=== PATIENT | male | born 1945 | race Caucasian/White ===

== ENCOUNTER 2018-05-13 14:26 | Inpatient (IN) | payer MEDICARE, OTHER ==
[~2018-05-13] VITALS: Ht 172.7 cm; Wt 84.1 kg
[~2018-05-13 14:26] MED LIST: METF500T7 PO; PER10325T PO; SIMV20TA5 PO; TADA5TAB2 PO; ZOLP5TAB8 PO
[2018-05-13] MEDS ORDERED: nitroGLYCERIN 1gm ointment UD TP ONE (14:45)
[2018-05-13 14:53] LABS: BASOPHILS % (AUTO) 0.3 % (0-1); EOSINOPHILS % (AUTO) 0.3 % (0-6); HEMATOCRIT 43.8 % (42.0-52.0); HEMOGLOBIN 14.6 g/dl (14.0-17.9); LYMPHOCYTES # (AUTO) 0.7 X10'3 (1.1-4.8); LYMPHOCYTES % (AUTO) 5.7 % (21-51); MEAN CORPUSCULAR HEMOGLOBIN 31.3 PG (27.0-31.0); MEAN CORPUSCULAR HGB CONC 33.2 % (33.0-36.5); MEAN CORPUSCULAR VOLUME 94.3 FL (78-98); MEAN PLATELET VOLUME 7.9 FL (7.4-10.4); MONOCYTES # (AUTO) 0.3 X10'3 (0-0.9); MONOCYTES % (AUTO) 2.2 % (2-12); NEUTROPHILS # (AUTO) 10.7 X10'3 (1.8-7.7); NEUTROPHILS % (AUTO) 91.5 % (42-75); PLATELET COUNT 202 X10'3 (140-440); RED BLOOD COUNT 4.64 X10'6 (4.70-6.10); RED CELL DISTRIBUTION WIDTH 14.3 % (11.5-14.5); WHITE BLOOD COUNT 11.7 X10'3 (4.5-11.0)
[2018-05-13] MEDS ORDERED: furosemide 40mg/4ml inj IV ONE (14:55)
[2018-05-13] MEDS ORDERED: furosemide 10 MG/1 ML 10ml inj IV ONE (14:55)
[2018-05-13] MEDS ORDERED: LORazepam 2 mg/ml vial IV ONE (15:00)
[2018-05-13 15:10] LABS: ALANINE AMINOTRANSFERASE 97 U/L (12-78); ALBUMIN 3.2 G/DL (3.4-5.0); ALBUMIN/GLOBULIN RATIO 0.9 (1.1-1.5); ALKALINE PHOSPHATASE 284 IU/L (46-116); ANION GAP 12 (8-16); ASPARTATE AMINO TRANSFERASE 98 U/L (10-37); BILIRUBIN,TOTAL 1.4 MG/DL (0.1-1.0); BLOOD UREA NITROGEN 22 MG/DL (7-18); BUN/CREATININE RATIO 18.6 (5.4-32.0); CALCIUM 8.5 MG/DL (8.5-10.1); CHLORIDE 100 MMOL/L (99-107); CREATININE 1.18 MG/DL (0.60-1.10); GLUCOSE 148 MG/DL (70-104); POTASSIUM 3.5 MMOL/L (3.5-5.1); SODIUM 140 MMOL/L (135-145); TOTAL CARBON DIOXIDE 28.5 MMOL/L (24-32); TOTAL PROTEIN 6.7 G/DL (6.4-8.2); eGFR 61 ML/MIN
[2018-05-13] MEDS ORDERED: heparin 10,000 units/1 ML INJ IV ONE ×2 (15:15→18:10)
[2018-05-13 15:16] LABS: MAGNESIUM 1.5 MG/DL (1.5-2.4)
[2018-05-13 15:20] LABS: ABG BASE EXCESS 1.4 mmol/L (-2.0-3.0); ABG HCO3 23.5 mmol/L (22.0-26.0); ABG OXYGEN SATURATION 97.6 % (95-98); ABG PCO2 (T) 30.7 mmHg (35.0-48.0); ABG PH (T) 7.502 (7.350-7.450); ABG PO2 (T) 102.7 mmHg (83-108); ALLEN'S TEST Positive; FCOHb 1.3 % (0.5-1.5); FMetHb 0.1 % (0.3-1.12); FO2Hb 96.2 % (94-100); RESPIRATORY RATE 8 b/min; TOTAL HEMOGLOBIN 15.5 G/dl (14.0-18.0)
[2018-05-13] MEDS: heparin 25,000 UNIT/250ml bag 250 ML IV SCH ×2 (15:36→15:47)
[2018-05-13] MEDS ORDERED: POTA10TA36 PO (16:53)
[2018-05-13] MEDS ORDERED: FURO-150 PO (16:53)
[2018-05-13] MEDS ORDERED: HYDR-4353 PO (16:53)
[2018-05-13] MEDS ORDERED: NYST1000 PO (16:53)
[2018-05-13] MEDS ORDERED: PRED5TAB PO (16:59)
[2018-05-13] MEDS ORDERED: heparin 25,000 UNIT/250ml bag 250 ML IV SCH (18:08)
[2018-05-13] MEDS ORDERED: magnesium 4gm in 100ml NS 100 ML IV PRN (18:10)
[2018-05-13] MEDS ORDERED: potassium Cl 40MEQ/NS 500ml 500 ML IV PRN ×2 (18:10)
[2018-05-13] MEDS ORDERED: magnesium hydroxide 30ml (MOM) UD suspension PO PRN (18:10)
[2018-05-13] MEDS ORDERED: potassium Cl 20 mEq SR tablet PO PRN (18:10)
[2018-05-13] MEDS ORDERED: acetaminophen 325mg tablet PO PRN ×2 (18:10)
[2018-05-13] MEDS ORDERED: glucagon, human recombinant 1mg kit SUBCUT PRN (18:10)
[2018-05-13] MEDS ORDERED: bisacodyl 10mg suppository rectal RC PRN (18:10)
[2018-05-13] MEDS ORDERED: mag hydrox/Alum hydrox/simeth 30ml oral suspension PO PRN (18:10)
[2018-05-13] MEDS ORDERED: insulin Lispro (HumaLOG) vial - multi-dose SQ SCH (18:10)
[2018-05-13] MEDS ORDERED: MESSAGE TO PHARMACY PO ONE (18:10)
[2018-05-13] MEDS ORDERED: HYDROcodone/acetaminophen 10/325mg tab PO PRN (18:10)
[2018-05-13] MEDS ORDERED: heparin 10,000 units/1 ML INJ IV PRN (18:10)
[2018-05-13] MEDS ORDERED: dextrose ORAL solution 15 GM/59 ML bottle PO PRN ×2 (18:10)
[2018-05-13] MEDS ORDERED: morphine 2 MG/ML inj. syringe IV PRN ×2 (18:10)
[2018-05-13] MEDS ORDERED: nitroGLYCERIN 0.4mg SUBLingual tab SL PRN (18:10)
[2018-05-13] MEDS ORDERED: dextrose 50%-water 50ml dispensing syringe IV PRN ×3 (18:10→20:30)
[2018-05-13] MEDS ORDERED: HYDROcodone/acetaminophen 5mg/325mg tablet PO PRN (18:10)
[2018-05-13] MEDS ORDERED: ondansetron/PF 4mg/2ml inj IV PRN (18:10)
[2018-05-13 18:58] LABS: HEMOGLOBIN A1C 6.5 % (4.5-6.2)
[2018-05-13 19:02] LABS: BASOPHILS % (AUTO) 0 % (0-1); EOSINOPHILS % (AUTO) 0.1 % (0-6); HEMOGLOBIN 14.7 g/dl (14.0-17.9); LYMPHOCYTES # (AUTO) 0.9 X10'3 (1.1-4.8); LYMPHOCYTES % (AUTO) 7.6 % (21-51); MEAN CORPUSCULAR HEMOGLOBIN 31.4 PG (27.0-31.0); MEAN CORPUSCULAR HGB CONC 33.3 % (33.0-36.5); MEAN CORPUSCULAR VOLUME 94.3 FL (78-98); MEAN PLATELET VOLUME 7.8 FL (7.4-10.4); MONOCYTES # (AUTO) 0.3 X10'3 (0-0.9); MONOCYTES % (AUTO) 2.6 % (2-12); NEUTROPHILS # (AUTO) 10.2 X10'3 (1.8-7.7); NEUTROPHILS % (AUTO) 89.7 % (42-75); PLATELET COUNT 197 X10'3 (140-440); RED BLOOD COUNT 4.67 X10'6 (4.70-6.10); RED CELL DISTRIBUTION WIDTH 14.5 % (11.5-14.5); WHITE BLOOD COUNT 11.4 X10'3 (4.5-11.0)
[2018-05-13 19:24] LABS: INR 1.7 INR; PARTIAL THROMBOPLASTIN TIME 62 SECONDS (22-32); PROTHROMBIN TIME 16.7 SECONDS (9.0-12.0)
[2018-05-13] MEDS ORDERED: folic acid inj. 2 MG, thiamine inj. 100 MG, MVI, adult No.4 with vit. K 10 ML in dextro... IV SCH ×4 (20:10)
[2018-05-13] MEDS ORDERED: thiamine inj. 100 MG in normal saline 100ml IV soln 100 ML IV ONE (20:10)
[2018-05-13 20:15] VITALS: BP 141/94
[2018-05-13] MEDS ORDERED: thiamine 100mg/ml 2ml inj. IV ONE (20:30)
[2018-05-13] MEDS ORDERED: haloperidol lactate 5mg/ml inj IM PRN (20:30)
[2018-05-13] MEDS ORDERED: haloperidol 5mg tablet PO PRN (20:30)
[2018-05-13] MEDS: insulin glargine (Lantus) pen - multi-dose SQ SCH (21:00)
[2018-05-13] MEDS: docusate sod 100mg capsule PO SCH (22:04)
[2018-05-13] MEDS: furosemide 40mg/4ml inj IV SCH (22:04)
[2018-05-13] MEDS: LORazepam 2 mg/ml vial IV PRN (22:05)
[2018-05-13 23:00] VITALS: BP 149/88
[2018-05-14] VITALS (7 sets, daily range): BP systolic 109–151; BP diastolic 59–103
[2018-05-14] MEDS: LORazepam 2 mg/ml vial IV PRN ×4 (00:40→22:16)
[2018-05-14 03:52] LABS: BASOPHILS % (AUTO) 0.1 % (0-1); EOSINOPHILS # (AUTO) 0.1 X10'3 (0-0.9); EOSINOPHILS % (AUTO) 1.1 % (0-6); HEMATOCRIT 41.8 % (42.0-52.0); HEMOGLOBIN 13.8 g/dl (14.0-17.9); LYMPHOCYTES # (AUTO) 0.7 X10'3 (1.1-4.8); LYMPHOCYTES % (AUTO) 8.1 % (21-51); MEAN CORPUSCULAR VOLUME 93.9 FL (78-98); MEAN PLATELET VOLUME 8.1 FL (7.4-10.4); MONOCYTES # (AUTO) 0.3 X10'3 (0-0.9); MONOCYTES % (AUTO) 3.8 % (2-12); NEUTROPHILS % (AUTO) 86.9 % (42-75); PLATELET COUNT 173 X10'3 (140-440); RED BLOOD COUNT 4.45 X10'6 (4.70-6.10); RED CELL DISTRIBUTION WIDTH 14.5 % (11.5-14.5); WHITE BLOOD COUNT 9.2 X10'3 (4.5-11.0)
[2018-05-14 03:58] LABS: ALANINE AMINOTRANSFERASE 79 U/L (12-78); ALBUMIN/GLOBULIN RATIO 0.9 (1.1-1.5); ALKALINE PHOSPHATASE 253 IU/L (46-116); ANION GAP 9 (8-16); ASPARTATE AMINO TRANSFERASE 64 U/L (10-37); BILIRUBIN,TOTAL 2.4 MG/DL (0.1-1.0); BLOOD UREA NITROGEN 23 MG/DL (7-18); BUN/CREATININE RATIO 17.7 (5.4-32.0); CALCIUM 8.3 MG/DL (8.5-10.1); CHLORIDE 98 MMOL/L (99-107); GLUCOSE 108 MG/DL (70-104); SODIUM 139 MMOL/L (135-145); TOTAL CARBON DIOXIDE 32.5 MMOL/L (24-32); TOTAL PROTEIN 6.3 G/DL (6.4-8.2); eGFR 54 ML/MIN
[2018-05-14 03:59] LABS: AMYLASE 89 U/L (25-115); CHOL/HDL RATIO 1.8 (0.00-4.99); CHOLESTEROL 128 MG/DL (0-200); HDL CHOLESTEROL 72 MG/DL (35-60); LDL CHOLESTEROL 51 MG/DL (50-100); MAGNESIUM 1.1 MG/DL (1.5-2.4); PHOSPHORUS 3.2 MG/DL (2.3-4.5); TRIGLYCERIDES 77 MG/DL (20-135)
[2018-05-14 04:04] LABS: INR 1.6 INR; PROTHROMBIN TIME 16.2 SECONDS (9.0-12.0)
[2018-05-14] MEDS: heparin 25,000 UNIT/250ml bag 250 ML IV SCH (04:29)
[2018-05-14] MEDS: magnesium Cl slow-release 64mg tablet PO PRN ×2 (07:22→19:46)
[2018-05-14] MEDS: docusate sod 100mg capsule PO SCH ×2 (07:23→19:45)
[2018-05-14] MEDS: nitroGLYCERIN 0.4mg/hour patch TD SCH (07:24)
[2018-05-14] MEDS: furosemide 40mg/4ml inj IV SCH ×2 (07:30→19:45)
[2018-05-14] MEDS ORDERED: folic acid inj. 2 MG, thiamine inj. 100 MG, MVI, adult No.4 with vit. K 10 ML in dextro... IV SCH ×4 (08:00)
[2018-05-14] MEDS: K and/or MAG REPLACEMENT MC SCH (08:00)
[2018-05-14] MEDS: carvedilol 6.25mg tablet PO SCH ×2 (11:07→19:45)
[2018-05-14] MEDS ORDERED: CEFU500T66 PO (18:38)
[2018-05-14] MEDS ORDERED: DONE10TA7 PO (18:38)
[2018-05-14] MEDS ORDERED: AMLO5TAB PO (18:38)
[2018-05-14] MEDS ORDERED: LOSA50TA3 PO (18:38)
[2018-05-14] MEDS ORDERED: DOXY100C2 PO (18:38)
[2018-05-14] MEDS ORDERED: FURO-149 PO (18:38)
[2018-05-14] MEDS ORDERED: MONT10TA21 PO (18:38)
[2018-05-14] MEDS ORDERED: ATOR40TA71 PO (18:38)
[2018-05-14] MEDS ORDERED: CARV-50 PO (18:38)
[2018-05-14] MEDS: insulin glargine (Lantus) pen - multi-dose SQ SCH (21:00)
[2018-05-14 22:37] LABS: MAGNESIUM 1.1 MG/DL (1.5-2.4); POTASSIUM 3.6 MMOL/L (3.5-5.1)
[2018-05-15] MEDS: magnesium Cl slow-release 64mg tablet PO PRN ×2 (00:30→18:01)
[2018-05-15] MEDS: LORazepam 2 mg/ml vial IV PRN (00:32)
[2018-05-15 03:00] VITALS: BP 142/80
[2018-05-15 06:00] VITALS: BP 139/92
[2018-05-15 06:50] LABS: BASOPHILS % (AUTO) 0.4 % (0-1); EOSINOPHILS # (AUTO) 0.1 X10'3 (0-0.9); EOSINOPHILS % (AUTO) 2.2 % (0-6); HEMATOCRIT 39.2 % (42.0-52.0); HEMOGLOBIN 13.2 g/dl (14.0-17.9); LYMPHOCYTES # (AUTO) 0.7 X10'3 (1.1-4.8); LYMPHOCYTES % (AUTO) 11.4 % (21-51); MEAN CORPUSCULAR HEMOGLOBIN 31.7 PG (27.0-31.0); MEAN CORPUSCULAR HGB CONC 33.7 % (33.0-36.5); MEAN CORPUSCULAR VOLUME 94.3 FL (78-98); MONOCYTES # (AUTO) 0.4 X10'3 (0-0.9); MONOCYTES % (AUTO) 5.8 % (2-12); NEUTROPHILS # (AUTO) 5.1 X10'3 (1.8-7.7); NEUTROPHILS % (AUTO) 80.2 % (42-75); PLATELET COUNT 154 X10'3 (140-440); RED BLOOD COUNT 4.15 X10'6 (4.70-6.10); RED CELL DISTRIBUTION WIDTH 14.3 % (11.5-14.5); WHITE BLOOD COUNT 6.4 X10'3 (4.5-11.0)
[2018-05-15 07:03] LABS: INR 1.6 INR; PROTHROMBIN TIME 15.9 SECONDS (9.0-12.0)
[2018-05-15 07:13] LABS: ALANINE AMINOTRANSFERASE 63 U/L (12-78); ALBUMIN 2.8 G/DL (3.4-5.0); ALBUMIN/GLOBULIN RATIO 0.9 (1.1-1.5); ALKALINE PHOSPHATASE 212 IU/L (46-116); AMYLASE 81 U/L (25-115); ANION GAP 7 (8-16); ASPARTATE AMINO TRANSFERASE 44 U/L (10-37); BILIRUBIN,TOTAL 1.8 MG/DL (0.1-1.0); BLOOD UREA NITROGEN 26 MG/DL (7-18); CALCIUM 8.2 MG/DL (8.5-10.1); CHLORIDE 99 MMOL/L (99-107); CREATININE 1.18 MG/DL (0.60-1.10); GLUCOSE 117 MG/DL (70-104); MAGNESIUM 1.1 MG/DL (1.5-2.4); PHOSPHORUS 3.2 MG/DL (2.3-4.5); POTASSIUM 3.3 MMOL/L (3.5-5.1); SODIUM 140 MMOL/L (135-145); TOTAL CARBON DIOXIDE 34.1 MMOL/L (24-32); TOTAL PROTEIN 5.8 G/DL (6.4-8.2); eGFR 61 ML/MIN
[2018-05-15] MEDS: furosemide 40mg/4ml inj IV SCH ×2 (07:43→22:01)
[2018-05-15] MEDS: spironolactone 25 MG tablet PO SCH (07:44)
[2018-05-15] MEDS: multivitamins, therapeutics tablet PO SCH (07:44)
[2018-05-15] MEDS: docusate sod 100mg capsule PO SCH ×2 (07:44→22:01)
[2018-05-15] MEDS: thiamine 100mg tablet PO SCH (07:44)
[2018-05-15] MEDS: nitroGLYCERIN 0.4mg/hour patch TD SCH (07:44)
[2018-05-15] MEDS: lisinopril 5mg tablet PO SCH (07:45)
[2018-05-15] MEDS: carVEDilol 12.5mg tablet PO SCH ×2 (07:45→22:01)
[2018-05-15] MEDS: folic acid 1mg tablet PO SCH (07:45)
[2018-05-15] MEDS: K and/or MAG REPLACEMENT MC SCH (07:54)
[2018-05-15 11:00] VITALS: BP 109/66
[2018-05-15 15:00] VITALS: BP 118/79
[2018-05-15] MEDS: potassium Cl 20 mEq SR tablet PO PRN (18:00)
[2018-05-15 19:00] VITALS: BP 117/77
[2018-05-15] MEDS: albuterol 2.5 MG/3 ML nebule NEB PRN (20:29)
[2018-05-15] MEDS ORDERED: LORazepam 1 MG tablet PO PRN (20:30)
[2018-05-15] MEDS ORDERED: LORazepam 2 mg/ml vial IV PRN (20:30)
[2018-05-15] MEDS: insulin glargine (Lantus) pen - multi-dose SQ SCH (21:00)
[2018-05-15 23:00] VITALS: BP 109/75
[2018-05-16] MEDS: albuterol 2.5 MG/3 ML nebule NEB PRN ×2 (02:37→14:42)
[2018-05-16 03:00] VITALS: BP 115/71
[2018-05-16] MEDS: potassium Cl 20 mEq SR tablet PO PRN (04:37)
[2018-05-16] MEDS: magnesium Cl slow-release 64mg tablet PO PRN (04:37)
[2018-05-16 06:00] VITALS: BP 127/70
[2018-05-16 06:33] LABS: BASOPHILS % (AUTO) 0.3 % (0-1); EOSINOPHILS # (AUTO) 0.2 X10'3 (0-0.9); EOSINOPHILS % (AUTO) 2.4 % (0-6); HEMATOCRIT 38.2 % (42.0-52.0); HEMOGLOBIN 12.6 g/dl (14.0-17.9); LYMPHOCYTES # (AUTO) 0.7 X10'3 (1.1-4.8); LYMPHOCYTES % (AUTO) 11.3 % (21-51); MEAN CORPUSCULAR HEMOGLOBIN 31.4 PG (27.0-31.0); MEAN CORPUSCULAR HGB CONC 33.1 % (33.0-36.5); MEAN CORPUSCULAR VOLUME 94.7 FL (78-98); MEAN PLATELET VOLUME 8.3 FL (7.4-10.4); MONOCYTES # (AUTO) 0.4 X10'3 (0-0.9); MONOCYTES % (AUTO) 6.8 % (2-12); NEUTROPHILS # (AUTO) 5.1 X10'3 (1.8-7.7); NEUTROPHILS % (AUTO) 79.2 % (42-75); PLATELET COUNT 155 X10'3 (140-440); RED BLOOD COUNT 4.03 X10'6 (4.70-6.10); RED CELL DISTRIBUTION WIDTH 14.2 % (11.5-14.5); WHITE BLOOD COUNT 6.4 X10'3 (4.5-11.0)
[2018-05-16 06:41] LABS: ALANINE AMINOTRANSFERASE 62 U/L (12-78); ALBUMIN 2.9 G/DL (3.4-5.0); ALBUMIN/GLOBULIN RATIO 0.9 (1.1-1.5); ALKALINE PHOSPHATASE 238 IU/L (46-116); AMYLASE 118 U/L (25-115); ANION GAP 8 (8-16); ASPARTATE AMINO TRANSFERASE 50 U/L (10-37); BILIRUBIN,TOTAL 1.4 MG/DL (0.1-1.0); BLOOD UREA NITROGEN 28 MG/DL (7-18); BUN/CREATININE RATIO 25.2 (5.4-32.0); CALCIUM 8.6 MG/DL (8.5-10.1); CHLORIDE 95 MMOL/L (99-107); CREATININE 1.11 MG/DL (0.60-1.10); GLUCOSE 102 MG/DL (70-104); MAGNESIUM 1.1 MG/DL (1.5-2.4); PHOSPHORUS 4.2 MG/DL (2.3-4.5); POTASSIUM 3.5 MMOL/L (3.5-5.1); SODIUM 137 MMOL/L (135-145); TOTAL PROTEIN 6.1 G/DL (6.4-8.2); eGFR 65 ML/MIN
[2018-05-16 06:48] LABS: INR 1.5 INR; PROTHROMBIN TIME 15.1 SECONDS (9.0-12.0)
[2018-05-16] MEDS: carVEDilol 12.5mg tablet PO SCH (07:56)
[2018-05-16] MEDS: multivitamins, therapeutics tablet PO SCH (07:57)
[2018-05-16] MEDS: lisinopril 5mg tablet PO SCH (07:57)
[2018-05-16] MEDS: docusate sod 100mg capsule PO SCH (07:57)
[2018-05-16] MEDS: thiamine 100mg tablet PO SCH (07:58)
[2018-05-16] MEDS: spironolactone 25 MG tablet PO SCH (07:59)
[2018-05-16] MEDS: folic acid 1mg tablet PO SCH (07:59)
[2018-05-16] MEDS ORDERED: enoxaparin 40mg/0.4ml syringe SUBCUT SCH (08:00)
[2018-05-16] MEDS: K and/or MAG REPLACEMENT MC SCH (08:00)
[2018-05-16] MEDS: nitroGLYCERIN 0.4mg/hour patch TD SCH (08:01)
[2018-05-16] MEDS: furosemide 40mg/4ml inj IV SCH (08:01)
[2018-05-16] MEDS: magnesium 1gm/100ml D5W IVPB 100 ML IV PRN ×2 (09:36→11:38)
[2018-05-16 11:00] VITALS: BP 119/70
[2018-05-16 12:52] VITALS: BP 119/70
[2018-05-17] MEDS ORDERED: LORazepam 1 MG tablet PO PRN (20:30)
[2018-05-17] MEDS ORDERED: LORazepam 2 mg/ml vial IV PRN (20:30)
== END 2018-05-16 14:55 | DRG 280 ==
LOC: ER 14:27 → ED HOLD 18:08 → EDBEDREQ 19:42 → PCU 3S 21:00
PROVIDERS: ADMIT Hospitalist; ATTEND Internal Medicine
PROC: 5A09357 Assistance with Respiratory Ventilation, Less than 24 Consecutive Hours, Continuous Positive Airway Pressure (ICD-10-PCS; principal; 2018-05-13)
DX: I21.A1 Myocardial infarction type 2 (principal); I50.23 Acute on chronic systolic (congestive) heart failure; J96.01 Acute respiratory failure with hypoxia; I42.6 Alcoholic cardiomyopathy; E11.9 Type 2 diabetes mellitus without complications; E78.00 Pure hypercholesterolemia, unspecified; E78.5 Hyperlipidemia, unspecified; E87.6 Hypokalemia; E83.42 Hypomagnesemia; F10.229 Alcohol dependence with intoxication, unspecified; F41.9 Anxiety disorder, unspecified; G89.29 Other chronic pain; F12.90 Cannabis use, unspecified, uncomplicated; J44.9 Chronic obstructive pulmonary disease, unspecified; F43.10 Post-traumatic stress disorder, unspecified; I11.0 Hypertensive heart disease with heart failure; I25.10 Atherosclerotic heart disease of native coronary artery without angina pectoris; I25.2 Old myocardial infarction; Z95.5 Presence of coronary angioplasty implant and graft; Z79.4 Long term (current) use of insulin; Z79.899 Other long term (current) drug therapy; Z79.84 Long term (current) use of oral hypoglycemic drugs; Z83.3 Family history of diabetes mellitus; Z82.49 Family history of ischemic heart disease and other diseases of the circulatory system; Z71.41 Alcohol abuse counseling and surveillance of alcoholic
CPT/HCPCS: 36415; 36600; 71045; 80053; 80061; 82150; 82803; 82948; 83036; 83735; 83880; 84100; 84132; 84484; 85018; 85025; 85610; 85730; 87070; 93005; 93306; 94640; 94660; 94760; 96365; 96375; 97110; 97116; 97161; 97530; 99291; G0378; J1644; J1650; J1815; J1940; J2060; J3411; J3475; J3480; J3490; J7030; J7060

== ENCOUNTER 2020-09-09 17:38 | Emergency (ER) | payer OTHER, MEDICARE ==
[~2020-09-09] VITALS: Ht 172.7 cm; Wt 77.5 kg
[~2020-09-09 17:38] MED LIST changes: +ALBU8.5H8 IH; +AMLO5TAB PO; +ATOR80TA PO; +CARV25TA2 PO; +DONE10TA7 PO; +LISI20TA28 PO; +MAGN400T39 PO; -METF500T7 PO; -PER10325T PO; -SIMV20TA5 PO; -TADA5TAB2 PO; +VANC5VIA PO; -ZOLP5TAB8 PO
[2020-09-09] MEDS ORDERED: iohexol 350 MG/ML 50ML vial IV ONE (17:45)
[2020-09-09 17:49] LABS: BASOPHILS # (AUTO) 0.1 X10'3 (0-0.2); BASOPHILS % (AUTO) 0.8 % (0-1); EOSINOPHILS % (AUTO) 0.2 % (0-6); HEMOGLOBIN 15.7 g/dl (14.0-17.9); LYMPHOCYTES # (AUTO) 1.2 X10'3 (1.1-4.8); MEAN CORPUSCULAR HEMOGLOBIN 32.3 PG (27.0-31.0); MEAN CORPUSCULAR HGB CONC 33.4 g/dL (33.0-36.5); MEAN CORPUSCULAR VOLUME 96.5 FL (78-98); MONOCYTES % (AUTO) 6.7 % (2-12); NEUTROPHILS # (AUTO) 12.4 X10'3 (1.8-7.7); NEUTROPHILS % (AUTO) 84.3 % (42-75); PLATELET COUNT 352 X10'3 (140-440); RED BLOOD COUNT 4.87 X10'6 (4.70-6.10); WHITE BLOOD COUNT 14.8 X10'3 (4.5-11.0)
[2020-09-09 18:00] LABS: PARTIAL THROMBOPLASTIN TIME 29 SECONDS (22-32)
[2020-09-09 18:01] LABS: ALANINE AMINOTRANSFERASE 23 U/L (12-78); ALBUMIN 3.7 G/DL (3.4-5.0); ALBUMIN/GLOBULIN RATIO 0.8 (1.1-1.5); ALKALINE PHOSPHATASE 105 IU/L (46-116); ANION GAP 19 (8-16); ASPARTATE AMINO TRANSFERASE 14 U/L (10-37); BILIRUBIN,TOTAL 0.6 MG/DL (0.1-1.0); BLOOD UREA NITROGEN 78 MG/DL (7-18); BUN/CREATININE RATIO 8.2 (5.4-32.0); CALCIUM 8.8 MG/DL (8.5-10.1); CHLORIDE 98 MMOL/L (99-107); CREATININE 9.56 MG/DL (0.60-1.10); GLUCOSE 125 MG/DL (70-104); SODIUM 132 MMOL/L (135-145); TOTAL CARBON DIOXIDE 15.4 MMOL/L (24-32); TOTAL PROTEIN 8.3 G/DL (6.4-8.2); eGFR 5 ML/MIN
[2020-09-09 18:07] LABS: POTASSIUM 6.4 MMOL/L (3.5-5.1)
[2020-09-09] MEDS ORDERED: insulin regular, human 10 units/0.1 ml syringe IV ONE (18:15)
[2020-09-09] MEDS ORDERED: albuterol 2.5 MG/3 ML nebule NEB ONE (18:15)
[2020-09-09] MEDS ORDERED: dextrose 50%-water 50ml dispensing syringe IV ONE (18:15)
[2020-09-09] MEDS ORDERED: calcium chloride 100 MG/1 ML inj IV ONE (18:15)
[2020-09-09] MEDS ORDERED: sodium polystyrene sulfonate 15gm/60ml oral suspension PO ONE (18:15)
[2020-09-09] MEDS ORDERED: normal saline 1000ml 1,000 ML IV ONE ×2 (18:20→18:30)
--- NOTE | 2020-09-09 18:28 | NUR ---
Upper and lower dentures removed by deborah Norwood, placed in a plastic bag with label for [facility] to take home.
[2020-09-09 18:46] LABS: ETHANOL < 0.010 GM/DL (0.0-0.010)
--- NOTE | 2020-09-09 19:00 | NUR ---
EMS report to crew by stroke nurse Report to Carlos TELLES given via telephone to [facility] [phone], all questions answered will assume care on arrival from EMS to [facility] ED to ED transfer
--- NOTE | 2020-09-09 19:10 | NUR ---
Dentures taken to car by deborah Norwood
[2020-09-09 19:21] VITALS: BP 90/53
== END 2020-09-09 19:00 | disposition short-term general hospital (02) ==
LOC: ER 18:31
DX: I63.9 Cerebral infarction, unspecified (principal); E87.6 Hypokalemia; N17.9 Acute kidney failure, unspecified; I13.0 Hypertensive heart and chronic kidney disease with heart failure and stage 1 through stage 4 chronic kidney disease, or unspecified chronic kidney disease; E11.22 Type 2 diabetes mellitus with diabetic chronic kidney disease; N18.9 Chronic kidney disease, unspecified; I50.9 Heart failure, unspecified; J44.9 Chronic obstructive pulmonary disease, unspecified; E78.00 Pure hypercholesterolemia, unspecified; F17.200 Nicotine dependence, unspecified, uncomplicated; Z98.61 Coronary angioplasty status; Z95.1 Presence of aortocoronary bypass graft; F12.90 Cannabis use, unspecified, uncomplicated; Z72.89 Other problems related to lifestyle; Z98.890 Other specified postprocedural states; Z79.899 Other long term (current) drug therapy
CPT/HCPCS: 36415; 70450; 70496; 70498; 71045; 80053; 80320; 82948; 84145; 85025; 85610; 85730; 86885; 86900; 86901; 93005; 99291; Q9967